=== PATIENT | female | born 1970 | race Caucasian/White ===

== ENCOUNTER 2020-01-11 21:45 | Outpatient (REF) | payer BC, SELFPAY ==
[2020-01-13 11:59] LABS: Lyme Ab w Rflx to Lyme Confirm Negative (Negative)
[2020-01-14 22:03] LABS: Anaplasma phagocytophilum Negative (Negative); B. miyamotoi PCR Negative (Negative); Babesia divergens/MO-1 Negative (Negative); Babesia duncani Negative (Negative); Babesia microti Negative (Negative); Ehrlichia chaffeensis Negative (Negative); Ehrlichia ewingii/canis Negative (Negative); Ehrlichia muris eauclairensis Negative (Negative)
== END 2020-01-11 22:05 ==
LOC: NCHCN 21:45
PROVIDERS: PCP Family Medicine; Visit Provider Physician Assistant Medical
DX: W57.XXXA Bitten or stung by nonvenomous insect and other nonvenomous arthropods, initial encounter (principal); T14.8XXA Other injury of unspecified body region, initial encounter
CPT/HCPCS: 87798; 86618

== ENCOUNTER 2021-12-12 19:14 | Outpatient (REF) | payer BC, SELFPAY ==
[2021-12-12 19:44] LABS: Hemoglobin A1C 5.6 % (<5.7)
[2021-12-12 20:38] LABS: ALT 20 U/L (14-59); AST 16 U/L (15-37); Albumin 3.7 g/dL (3.4-5.0); Alkaline Phosphatase 86 U/L (46-116); Anion Gap 6.7 mmol/L (3-11); BUN 16 mg/dL (7-18); Bilirubin, Total 0.6 mg/dL (0.2-1.0); CO2 28.3 mmol/L (21.0-32.0); CREATININE 0.7 mg/dL (0.55-1.02); Calcium 8.7 mg/dL (8.5-10.1); Calculated LDL 71 mg/dL (<100); Chloride 105 mmol/L (98-107); Cholesterol 172 mg/dL (<200); Glucose 96 mg/dL (74-106); HDL Cholesterol 92 mg/dL (40-60); Potassium 4.6 mmol/L (3.5-5.1); Sodium 140 mmol/L (136-145); Total Protein 6.9 g/dL (6.4-8.2); Triglyceride 45 mg/dL (<150)
== END 2021-12-12 19:15 | disposition home or self-care (01) ==
LOC: NCHCN 19:14
PROVIDERS: PCP Family Medicine; Visit Provider Physician Assistant Medical
DX: Z00.00 Encounter for general adult medical examination without abnormal findings (principal); Z86.32 Personal history of gestational diabetes; Z13.220 Encounter for screening for lipoid disorders
CPT/HCPCS: 80053; 80061; 83036

== ENCOUNTER → 2022-05-09 12:18 | Outpatient (CLI) | payer BC, SELFPAY ==
--- NOTE | 2022-05-09 | DI.RAD_ITS ---
Exam(s) XR CHEST 2V PA LATERAL EXAM: XR CHEST 2V PA LATERAL CLINICAL HISTORY: LT CHEST PAIN, R07.89 TECHNIQUE: 2D digital imaging was performed. COMPARISON: CR CHEST 2 VIEWS PA,LAT from 04/11/2011 FINDINGS: HEART: Normal size. Aorta: Normal diameter. PULMONARY VASCULATURE: Normal. LUNGS: Hyperinflated. Patchy densities projecting anteriorly which may lie in the lingula. PLEURAL SPACE: No pleural effusion or pneumothorax. BONE:Unremarkable for age. IMPRESSION: Question of lingular infiltrate. DATA REPOSITORY: RADIATION DOSE DELIVERED:
== END ==
PROVIDERS: PCP Family Medicine; Visit Provider Nurse Practitioner Family
DX: R07.89 Other chest pain (principal); R91.8 Other nonspecific abnormal finding of lung field
CPT/HCPCS: 71046

== ENCOUNTER → 2022-05-11 13:50 | Outpatient (CLI) | payer BC, SELFPAY ==
--- NOTE | 2022-05-11 | DI.CT_ITS ---
Exam(s) CT CHEST PE CTA EXAM: CT CHEST PE CTA CLINICAL HISTORY: LT CHEST PAIN, R07.89; PNEUMONIA, J18.9; ABNL LUNG IMAGING, R91.8. TECHNIQUE: Imaging Protocol: CT angiography of the chest was performed using pulmonary embolus katerin col. Multi planar reconstructions were performed. CONTRAST MATERIAL: Intravenous: Omnipaque 350 Contrast volume: 100 cc COMPARISON: CT CT CHEST WO from 05/10/2022 FINDINGS: CHEST: PULMONARY ARTERIES: There are no intraluminal filling defects to suggest acute pulmonary emboli. LUNGS: There is patchy infiltrate seen in both lung pickett. There is more confluent infiltrate in th e lingular segment of the left lung. No pleural effusions. No significant focal findings in the tra tony and mainstem bronchi. MEDIASTINUM: Small slightly enlarged lymph nodes noted in both hilar regions. CARDIAC: Heart size is upper normal. There is no pericardial effusion.Caliber of the thoracic aorta is within normal limits. No dissection. There is no significant shift of the interventricular septum . PARTIALLY VISUALIZED UPPERMOST ABDOMEN: No obvious findings OSSEOUS: No significant osseous lesions.. IMPRESSION: 1. No evidence of acute pulmonary emboli. No evidence of pulmonary infarction. 2. There is confluent infiltrate in the lingular segment of the left lung. Are also smaller areas of patchy infiltrate in both lung pickett. There are no pleural effusions. 3. Slightly prominent lymph nodes noted in both hilar regions. RADIATION DOSE DELIVERED: 204.02mGy.cm Total DLP DATA REPOSITORY: All CT scans at this facility are submitted to the National Radiology Data Registry (NRDR) Dose Index Registry (DIR) with the [employer] (ACR). RADIATION OPTIMIZATION: All CT scans at this facility use at least one of these dose optimization te chniques: automated exposure control; mA and/or kV adjustment per patient size (includes targeted exa ms where dose is matched to clinical indication); or iterative reconstruction.
[2022-05-11] MEDS: Omnipaque 350 MG/ML 100 ML BTL IJ (14:13)
[2022-05-11] MEDS: Normal Saline Flush 10 ML SYR IVP (14:14)
== END ==
PROVIDERS: PCP Family Medicine; Visit Provider Nurse Practitioner Family
DX: R59.0 Localized enlarged lymph nodes (principal); R91.8 Other nonspecific abnormal finding of lung field
CPT/HCPCS: 71275; J3490

== ENCOUNTER 2023-03-08 13:50 | Outpatient (REF) | payer BC, SELFPAY ==
[2023-03-08 16:30] LABS: Abs Immature Grans 0.01 10^3/uL (0.0-0.06); Absolute Basophil Count 0.03 10^3/uL (0.0-0.2); Absolute Eosinophil Count 0.07 10^3/uL (0.0-0.7); Absolute Lymphocyte Count 1.42 10^3/uL (1.2-3.4); Absolute Monocyte Count 0.52 10^3/uL (0.1-0.8); Absolute Neutrophil Count 5.04 10^3/uL (1.2-6.7); Basophils % 0.4; HCT 38.8 % (36.0-46.0); HGB 12.9 g/dL (11.2-15.7); Immature Grans % 0.1; MCH 29.7 pg (27.0-33.0); MCHC 33.2 % (32.0-36.0); MCV 89 fL (80-95); Monocytes % 7.3; Neutrophils % 71.2; Platelet Count 218 10^3/uL (130-400); RBC 4.35 10^6/uL (3.93-5.22); RDW 12.8 % (11.7-14.6); RDW-SD 41.8 fL; WBC 7.09 10^3/uL (4.4-10.8)
[2023-03-08 16:55] LABS: Anion Gap 5.5 mmol/L (3-11); BUN 15 mg/dL (7-18); CO2 29.5 mmol/L (21.0-32.0); CREATININE 0.7 mg/dL (0.55-1.02); Calcium 9.2 mg/dL (8.5-10.1); Chloride 102 mmol/L (98-107); Glucose 157 mg/dL (74-106); Potassium 4.3 mmol/L (3.5-5.1); Sodium 137 mmol/L (136-145)
== END 2023-03-08 13:51 | disposition home or self-care (01) ==
LOC: NCHCN 13:50
PROVIDERS: PCP Family Medicine; Visit Provider Physician Assistant Medical
DX: R91.8 Other nonspecific abnormal finding of lung field (principal)
CPT/HCPCS: 80048; 85025

== ENCOUNTER 2023-05-03 04:17 | Outpatient (CLI) | payer BC, SELFPAY ==
[2023-05-03] MEDS: Levalbuterol HFA 15 GM INH 4 PUFF IH (14:10)
[2023-05-03] MEDS: Inhaler, Assist Device 1 EACH MC (14:11)
--- NOTE | 2023-05-06 13:28 | PFT_ITS ---
Date of service: 05/03/23 Time of Service: 12:48 Pulmonary Function Test Result Indications: Bronchiectasis Interpretation Spirometry: There is moderate airflow limitation. There is no significant bronchodilator r esponse. Lung Volumes: There is air trapping Diffusion Capacity: Normal diffusion Airway Pressure: Increased airways resistance Impression Moderate airflow obstruction with air trapping and increased airways resistance. Clinical Correlation therefore is recommended.
== END 2023-05-03 04:18 | disposition home or self-care (01) ==
LOC: RT 04:17
PROVIDERS: PCP Family Medicine; Visit Provider Student in an Organized Health Care Education/Training Program
DX: J47.9 Bronchiectasis, uncomplicated (principal)
CPT/HCPCS: 94060; 94726; 94729

== ENCOUNTER 2023-05-06 06:06 | Day surgery (SDC) | payer BC, SELFPAY ==
[2023-05-06] VITALS (8 sets, daily range): BP systolic 99–127; BP diastolic 47–71; PULSE 59–80; RESP 16–20; TEMP 36.4–36.8; O2SAT 94–98; BMI 21.0
[2023-05-06] MEDS: Lactated Ringers 1,000 ML 80 ML IV (06:34)
--- NOTE | 2023-05-06 06:38 | ANES.PREOP_ITS ---
General Info Date of Service Date Performed: 05/06/23 Height: 5 ft 7.5 in Weight: 61.9 kg Body Mass Index (BMI): 21.0 Surgical Procedure: Operation Date: 05/06/23 07:40 Proposed Procedure Side Surgeon p Flexible Bronchoscopy w/BAL Nia Arriaga MD Meds Allergies and Home Medications Allergies Allergy/AdvReac Type Severity Reaction Status Date / Time codeine Allergy Severe hives Verified 05/06/23 06:21 Home Medication Medication Instructions Recorded fluticasone furoate 100 1 inh inhalation PRN 07/09/18 mcg-vilanterol 25 mcg/dose inhalation powder (Breo Ellipta) ascorbate calcium (vitamin C) 500 500 mg PO DIRECTED 04/02/23 mg tablet acetylcysteine 600 mg capsule (NAC) 600 mg PO DAILY 04/23/23 albuterol sulfate 90 mcg/actuation 2 puff inhalation Q6H PRN 04/23/23 aerosol inhaler shortness of breath or wheezing #8.5 grams triamcinolone acetonide 0.1 % 1 applic topical BID PRN 04/23/23 topical cream Current Visit Medications: Current Medications Generic Name Dose Route Start Last Admin Trade Name Freq PRN Reason Stop Dose Admin Ringer's Solution 1,000 mls @ 80 mls/hr 05/06/23 06:00 05/06/23 06:34 IV 06/02/23 23:59 80 mls/hr INFUSION AYAN Administration IV Miscellaneous Supplies 1 each 05/06/23 06:00 Iv Access IV 06/02/23 23:59 DIRECTED AYAN Sodium Chloride 0 ml 05/06/23 06:00 Normal Saline Flush 10 Ml Syr IV 06/02/23 23:59 PRN PRN Sodium Chloride 0 ml 05/06/23 06:00 Normal Saline 10 Ml Vial IJ 06/02/23 23:59 DIRECTED PRN Sterile Water 0 ml 05/06/23 06:00 Water,Injection,Sterile 10 Ml Vial IJ 06/02/23 23:59 DIRECTED PRN PFSH Active Problems Active Problems: Problem Status Onset Code Hemoptysis R04.2 COPD (chronic obstructive pulmonary disease) J44.9 Bronchiectasis J47.9 Reflux esophagitis K21.00 Cystocele with uterine prolapse N81.4 Pneumonia due to COVID-19 virus U07.1, J12.82 Cataract H26.9 Lip lesion K13.0 Bladder disorder N32.9 Foot pain M79.673 Urinary, incontinence, stress female N39.3 Chest pain R07.9 Pneumonia J18.9 Abnormal finding on lung imaging R91.8 GERD (gastroesophageal reflux disease) K21.9 Hiatal hernia K44.9 Hot flashes R23.2 Medical History Medical History Asthma Cough variant asthma Gestational diabetes Surgical History Surgical History H/O arthroscopy of knee H/O dilation and curettage History of colonoscopy History of cystocele repair History of esophagogastroduodenoscopy (EGD) Hx of hysterectomy laparoscopic asst vaginal Tobacco Smoking/Tobacco Use Status: Never Alcohol Alcohol Intake: never Substance Use Substance use type: does not use Prental History History 3 Para 2 Hx # Term Pregnancies Multiple births Hx # Pregnancies Ectopic pregnancies AB induced Hx Number of Living Children 2 AB spontaneous 1 Vital Signs and Lab Results Vital Signs Most Recent Vital Signs in EMR: Most Recent Vital Signs Temp Pulse Resp BP Pulse Ox 36.8 C 67 16 127/64 97 05/06/23 06:22 05/06/23 06:22 05/06/23 06:22 05/06/23 06:22 05/06/23 06:22 Lab Results Blood Type / Crossmatch: No Data to Display Complete Blood Count: No Data to Display Complete Metabolic Panel: No Data to Display Liver Function Panel: No Data to Display Coagulation Panel: No Data to Display Cardiac Panel: No Data to Display Arterial Blood Gas: No Data to Display Venous Blood Gas: No Data to Display Pancreas Panel: No Data to Display Thyroid Panel: No Data to Display Infectious Disease: 2 No Data to Display Blood Cultures: No Data to Display Toxicology Panel: No Data to Display Panel: No Data to Display Anesthesia Assessment and Plan Anesthesia History Personal History: No History of Anesthesia Complications Family History: No Family History of Anesthesia Complications Exercise Tolerance Exercise Tolerance: Metabolic Equivalents>4 Cardiac & Pulmonary Exam Cardiac Exam: Normal S1/S2 Heart Sounds Pulmonary Exam: Clear Bilateral Breath Sounds Implantable Cardiac Device Does patient have a Pacemaker or an ICD?: No Airway Exam Known Difficult Airway: No Mallampati Class: 3 Mouth Opening: Normal (> 3cm) Thyromental Distance: Greater than 3 cm Neck Range of Motion: Full ROM Neck Circumference: Normal Teeth Condition: Normal Dentition ASA Classification ASA Score: ASA 2 Emergency Case?: No NPO Status NPO Status: NPO Clears >2 hours, Solids >8 hours Status Status: History of Hysterectomy Anesthesia Plan Resuscitation Status: Full Code Anesthesia Technique: General Anesthesia Airway Planned: Natural Airway Monitors Used: Standard Monitors Preoperative Comments:: 53 yo female for bronch. Sig PMHx: COPD (breathing feels good today), bronchiectasis, GERD (not on meds, has not had issues, ? of if it is related to her infection), never smoker,
[2023-05-06] MEDS: Lidocaine 1% Multi-Dose 10 ML VIAL (07:44)
--- NOTE | 2023-05-06 07:50 | PAPNONF_PTH ---
PATIENT: Adilia Pierre LOC: [facility] U#:[id number] AGE/SX: 53/F ROOM: RE05/06/[address]: Nia Arriaga MD : 1970 BED: DIS: 05/06/2023 SPEC #: [id number] RECD: 05/06/23 11:53 STATUS: MITZI REQ #: [id number] FÉLIX: 05/06/23 07:[address]: Nia Arriaga DEPT: [facility] Cytology RECD BY: Dinah Banerjee ENTERED: 05/06/23 11:55 SP TYPE: PAPCAMILLEF ASHLEE DR: Marian Munguia V Tissues: 1 - BODY FLUID CYTO(NOT S/U/N/EM)[facility] 2 - BODY FLUID CYTO(NOT S/U/N/EM)[facility] Procedures: BODY FLUID CYTO(NOT SPU/UR/NIP/ENDOM)[facility] Comments: [id number] (TV = 10 ml, SENT FRESH) (REFRIGERATED)
--- NOTE | 2023-05-06 08:33 | W.ANESPOSTOP ---
Postoperative Evaluation Date, Time and Location Date Performed: 05/06/23 Time Performed: 08:33 Patient Location: PACU Vital Signs Most Recent Imported Vital Signs: Most Recent Vital Signs Temp Pulse Resp BP Pulse Ox 36.4 C L 74 16 102/71 97 05/06/23 08:16 05/06/23 08:26 05/06/23 08:26 05/06/23 08:26 05/06/23 08:26 Pain Score Most Recent Pain Score: Most Recent Pain Score Pain Level 0 05/06/23 08:26 Assessment Mental Status: Arousable with meaningful communication Airway and Respiratory Function: Patent airway with normal (patient baseline) respiratory exam Cardiovascular Function: Hemodynamically Stable Hydration Status: Adequately Hydrated Nausea & Vomiting: No Nausea or Vomiting Pain: Pt. Denies Any Pain Peripheral Nerve Block: Patient did not receive a nerve block
--- NOTE | 2023-05-06 09:14 | W.PM.OP ---
Date of service: 05/06/23 Time of Service: 07:30 Operative Note Operative Note Refer to Anesthesia Record Procedure Description: Bronchoscopy Indication:Bronchiectasis, hemoptysis Procedure performed: Flexible bronchoscopy with BAL and endobronchial brushing Sedation plan: General anesthesia Informed consent was obtained after the risks and benefits or the procedure were discussed. Anesthesia sedated and intubated the patient. A proper and complete OR compliant time out was performed. The therapeutic 6.2mm Olympus bronchoscope was inserted through the endotracheal tube and was inserted into the airways, where 3cc in total of 1% topical lidocaine was used the anesthetize the airways. The trachea was midline and without lesion or injury. The mucosa appeared normal and there were no signs of tracheomalacia. The doug was sharp. All bronchial subsegments were visualized within each lobe and showed some bronchiectasis with a small amount of white mucus. There were also several endobronchial nodules present that appeared to be contiguous with the tracheal rings and did not appear hypervascularized. A bronchoalveolar lavage was performed in the lingula. A total of 120cc of saline was administered with a return of 20cc. The fluid was slightly cloudy in appearance with visible mucus plugs. Next, an endobronchial brush was used to sample one of the endobronchial nodules in the left main stem bronchus. The bronchoscope was then removed and the case terminated. The patient was taken to PACU in stable condition. Samples collected:Lingular BAL, bronchial washings, endobronchial brushing Testing ordered:cell diff, bacteria, fungal and AFB culture, cytopathology Complications:None Nia Arriaga MD Pulmonary & Critical Care Medicine
[2023-05-08 08:34] LABS: Gram Smear Result Neutrophils Present
[2023-05-08 08:45] LABS: Gram Smear Result Neutrophils Present
[2023-05-13 14:05] LABS: Lymphocytes Fluid Relative 2 %; Neutrophils Fluid Relative 90 %
[2023-05-13 14:06] LABS: Mono/Macrophage Fluid Relative 8 %
[2023-06-11 14:29] LABS: Fungus Smear No Fungi Seen
[2023-06-11 14:33] LABS: Fungus Smear No Fungi Seen
[2023-08-09 10:43] LABS: Susceptibility, Aerobic MIC See Comments
[2023-08-09 10:58] LABS: Referred for Fungus ID See Comments
== END 2023-05-06 09:27 | disposition home or self-care (01) ==
PROVIDERS: PCP Family Medicine; Visit Provider Student in an Organized Health Care Education/Training Program
PROC: 0BJ08ZZ Inspection of Tracheobronchial Tree, Via Natural or Artificial Opening Endoscopic (ICD-10-PCS; CPT 31622; principal; 2023-05-06 07:30)
DX: J47.9 Bronchiectasis, uncomplicated (principal); R04.2 Hemoptysis; K21.9 Gastro-esophageal reflux disease without esophagitis; K44.9 Diaphragmatic hernia without obstruction or gangrene; Z79.899 Other long term (current) drug therapy
CPT/HCPCS: 31623; 31624; 80162; 87070; 87077; 87102; 87107; 87116; 87186; 87205; 87206; 88104; J2250; J2405

== ENCOUNTER → 2023-07-23 00:39 | Outpatient (CLI) | payer BC, SELFPAY ==
--- NOTE | 2023-07-23 | DI.RAD_ITS ---
Exam(s) XR ABDOMEN FLAT PLATE EXAM: XR ABDOMEN FLAT PLATE CLINICAL HISTORY: NOCARDIA INFECTION A43.9 EGD W/ CAPSULE PLACEMENT ON 06/21/23. TECHNIQUE: 2D digital imaging was performed. COMPARISON: CT CT CHEST PE CTA from 05/11/2022 CR XR CHEST, 2 VIEWS from 01/26/2023 FINDINGS: Single AP supine view the abdomen: The bowel gas pattern is nonspecific in the supine position. Round calcified phleboliths are noted i n both sides of the pelvis. There is a round circumferentially calcified 1 cm structure in the right upper quadrant, just to the right of the L1 vertebral body. Projected over the duodenum and superior pole the right kidney. IMPRESSION: Nonspecific bowel gas pattern in the supine position. Peripherally calcified roundish density in the right upper quadrant as described above. Possibly ing ested or otherwise. If clinically indicated follow-up CT scan can be performed for added specificity concerning this finding. DATA REPOSITORY: RADIATION DOSE DELIVERED:
[2023-07-23 09:15] LABS: BUN 15 mg/dL (7-18); CREATININE 0.7 mg/dL (0.55-1.02); Calcium 9.3 mg/dL (8.5-10.1); Chloride 104 mmol/L (98-107); Glucose 67 mg/dL (74-106); Potassium 3.9 mmol/L (3.5-5.1); Sodium 139 mmol/L (136-145)
== END ==
PROVIDERS: Student in an Organized Health Care Education/Training Program; PCP Family Medicine; Visit Provider Internal Medicine Infectious Disease
DX: A43.0 Pulmonary nocardiosis (principal)
CPT/HCPCS: 80048; 74018

== ENCOUNTER 2023-09-06 13:02 | Outpatient (CLI) | payer BC, SELFPAY ==
[2023-09-06 12:50] LABS: Abs Immature Grans 0.02 10^3/uL (0.0-0.06); Absolute Basophil Count 0.04 10^3/uL (0.0-0.2); Absolute Eosinophil Count 0.12 10^3/uL (0.0-0.7); Absolute Lymphocyte Count 1.48 10^3/uL (1.2-3.4); Absolute Monocyte Count 0.55 10^3/uL (0.1-0.8); Absolute Neutrophil Count 4.93 10^3/uL (1.2-6.7); Basophils % 0.6; Eosinophils % 1.7; HCT 42.5 % (36.0-46.0); HGB 13.9 g/dL (11.2-15.7); Immature Grans % 0.3; Lymphocytes % 20.7; MCH 28.8 pg (27.0-33.0); MCHC 32.7 % (32.0-36.0); MCV 88 fL (80-95); Monocytes % 7.7; Platelet Count 206 10^3/uL (130-400); RBC 4.83 10^6/uL (3.93-5.22); RDW 12.9 % (11.7-14.6); RDW-SD 41.7 fL; WBC 7.14 10^3/uL (4.4-10.8)
[2023-09-06 13:17] LABS: ALT 28 U/L (14-59); AST 20 U/L (15-37); Alkaline Phosphatase 102 U/L (46-116); Anion Gap 7.2 mmol/L (3-11); BUN 15 mg/dL (7-18); Bilirubin, Total 0.4 mg/dL (0.2-1.0); CO2 28.8 mmol/L (21.0-32.0); CREATININE 0.7 mg/dL (0.55-1.02); Calcium 9.5 mg/dL (8.5-10.1); Chloride 103 mmol/L (98-107); Glucose 95 mg/dL (74-106); Potassium 4.1 mmol/L (3.5-5.1); Sodium 139 mmol/L (136-145); Total Protein 7.9 g/dL (6.4-8.2)
[2023-09-06 23:13] LABS: HIV-1/2 Ag & Ab Screen Negative (Negative)
== END 2023-09-06 13:03 | disposition home or self-care (01) ==
LOC: LBO 13:03
PROVIDERS: PCP Family Medicine
DX: A43.9 Nocardiosis, unspecified (principal)
CPT/HCPCS: 36415; 80053; 87389; 85025

== ENCOUNTER → 2023-10-01 01:47 | Outpatient (CLI) | payer BC, SELFPAY ==
--- NOTE | 2023-10-01 | DI.CT_ITS ---
Exam(s) CT CHEST W EXAM: CT CHEST W CLINICAL HISTORY: NOCARDIA INFECTION A43.9 KNOWN PULMONARY NOCARDIOSIS TECHNIQUE: Imaging Protocol: Axial computed tomography images with coronal and sagittal reformatted images were created and reviewed CONTRAST MATERIAL: Intravenous: Omnipaque 350 Contrast volume:70 ml. COMPARISON: CT CT CHEST W CONTRAST from 03/19/2023 FINDINGS: Pulmonary parenchyma: Area bronchiectasis and surrounding atelectasis in the inferomedial lingula. M ild patchy tree-in-bud opacities are noted bilaterally with improvement from prior. Resolution in th e area of airspace disease in the superior segment of the left lower lobe. No new findings. No cons olidation. No dominant measurable mass. Tracheobronchial tree: No bronchiectasis or mucous plugging. Mediastinum and [place]: No dominant adenopathy or fluid collection. Pleura: No effusion. No pneumothorax. Heart: The heart is not dilated. No coronary artery calcifications are seen. Aorta: Thoracic aorta non-dilated. No visible atherosclerotic changes. Upper abdomen: No acute findings.. Bones: Minimal degenerative changes in the spine. Soft tissues: Unremarkable. IMPRESSION: Resolution of focal airspace disease in the superior segment of the left lower lobe. Improvement in mild tree-in-bud nodular infiltrates. Stable bronchiectasis with surrounding atelectasis in the inferomedial lingula. RADIATION DOSE DELIVERED: 386.49mGy.cm Total DLP DATA REPOSITORY: All CT scans at this facility are submitted to the National Radiology Data Registry (NRDR) Dose Index Registry (DIR) with the [employer] (ACR). RADIATION OPTIMIZATION: All CT scans at this facility use at least one of these dose optimization te chniques: automated exposure control; mA and/or kV adjustment per patient size (includes targeted exa ms where dose is matched to clinical indication); or iterative reconstruction.
[2023-10-01 07:36] LABS: Abs Immature Grans 0.03 10^3/uL (0.0-0.06); Absolute Basophil Count 0.05 10^3/uL (0.0-0.2); Absolute Eosinophil Count 0.15 10^3/uL (0.0-0.7); Absolute Lymphocyte Count 1.42 10^3/uL (1.2-3.4); Absolute Monocyte Count 0.42 10^3/uL (0.1-0.8); Absolute Neutrophil Count 2.57 10^3/uL (1.2-6.7); Basophils % 1.1; Eosinophils % 3.2; HCT 43.8 % (36.0-46.0); HGB 14.6 g/dL (11.2-15.7); Immature Grans % 0.6; Lymphocytes % 30.6; MCH 29.4 pg (27.0-33.0); MCHC 33.3 % (32.0-36.0); MCV 88 fL (80-95); MPV 11.3 fL (8.0-11.0); Monocytes % 9.1; Neutrophils % 55.4; Platelet Count 184 10^3/uL (130-400); RBC 4.97 10^6/uL (3.93-5.22); RDW 12.3 % (11.7-14.6); RDW-SD 39.8 fL; WBC 4.64 10^3/uL (4.4-10.8)
[2023-10-01] MEDS: Normal Saline - Diluent 50 ML VIAL IJ (07:48)
[2023-10-01] MEDS: Omnipaque 350 MG/ML 100 ML BTL IJ (07:49)
[2023-10-01 07:53] LABS: ALT 22 U/L (14-59); AST 21 U/L (15-37); Albumin 3.7 g/dL (3.4-5.0); Alkaline Phosphatase 103 U/L (46-116); Anion Gap 7.7 mmol/L (3-11); BUN 16 mg/dL (7-18); Bilirubin, Total 0.4 mg/dL (0.2-1.0); CO2 30.3 mmol/L (21.0-32.0); CREATININE 0.8 mg/dL (0.55-1.02); Calcium 9.2 mg/dL (8.5-10.1); Chloride 104 mmol/L (98-107); Glucose 121 mg/dL (74-106); Potassium 4.1 mmol/L (3.5-5.1); Sodium 142 mmol/L (136-145); Total Protein 7.2 g/dL (6.4-8.2)
== END ==
PROVIDERS: Internal Medicine Infectious Disease; PCP Family Medicine; Visit Provider Student in an Organized Health Care Education/Training Program
DX: A43.9 Nocardiosis, unspecified (principal)
CPT/HCPCS: 80053; 71260; 85025; J3490

== ENCOUNTER 2023-11-01 13:46 | Outpatient (CLI) | payer BC, SELFPAY ==
[2023-11-01 13:19] LABS: Abs Immature Grans 0.01 10^3/uL (0.0-0.06); Absolute Basophil Count 0.03 10^3/uL (0.0-0.2); Absolute Eosinophil Count 0.06 10^3/uL (0.0-0.7); Absolute Lymphocyte Count 1.33 10^3/uL (1.2-3.4); Absolute Monocyte Count 0.35 10^3/uL (0.1-0.8); Absolute Neutrophil Count 3.74 10^3/uL (1.2-6.7); Basophils % 0.5; Eosinophils % 1.1; HCT 42.7 % (36.0-46.0); HGB 14.4 g/dL (11.2-15.7); Immature Grans % 0.2; Lymphocytes % 24.1; MCHC 33.7 % (32.0-36.0); MCV 89 fL (80-95); MPV 11.7 fL (8.0-11.0); Monocytes % 6.3; Neutrophils % 67.8; Platelet Count 187 10^3/uL (130-400); RDW 12.3 % (11.7-14.6); RDW-SD 40.5 fL; WBC 5.52 10^3/uL (4.4-10.8)
[2023-11-01 14:13] LABS: ALT 18 U/L (14-59); AST 19 U/L (15-37); Albumin 3.8 g/dL (3.4-5.0); Alkaline Phosphatase 106 U/L (46-116); Anion Gap 8.3 mmol/L (3-11); BUN 16 mg/dL (7-18); Bilirubin, Total 0.3 mg/dL (0.2-1.0); CO2 27.7 mmol/L (21.0-32.0); CREATININE 0.7 mg/dL (0.55-1.02); Calcium 9.3 mg/dL (8.5-10.1); Chloride 104 mmol/L (98-107); Glucose 149 mg/dL (74-106); Potassium 3.9 mmol/L (3.5-5.1); Sodium 140 mmol/L (136-145); Total Protein 7.5 g/dL (6.4-8.2)
[2023-11-06 09:50] LABS: Estradiol, Mass Spectrometry 54 pg/mL; Estrone 55 pg/mL
== END 2023-11-01 13:47 | disposition home or self-care (01) ==
LOC: LBO 13:46
PROVIDERS: Internal Medicine; PCP Family Medicine; Visit Provider Physician Assistant Medical
DX: N95.1 Menopausal and female climacteric states (principal); A43.9 Nocardiosis, unspecified
CPT/HCPCS: 36415; 80053; 82670; 82679; 85025

== ENCOUNTER 2023-12-17 21:28 | Outpatient (CLI) | payer BC, SELFPAY ==
[2023-12-17 17:01] LABS: Abs Immature Grans 0.01 10^3/uL (0.0-0.06); Absolute Basophil Count 0.02 10^3/uL (0.0-0.2); Absolute Lymphocyte Count 1.54 10^3/uL (1.2-3.4); Absolute Monocyte Count 0.61 10^3/uL (0.1-0.8); Absolute Neutrophil Count 2.75 10^3/uL (1.2-6.7); Basophils % 0.4 %; HGB 13.8 g/dL (11.2-15.7); Immature Grans % 0.2 %; Lymphocytes % 30.6 %; MCH 29.7 pg (27.0-33.0); MCHC 32.9 % (32.0-36.0); MCV 90 fL (80-95); MPV 11.9 fL (8.0-11.0); Monocytes % 12.1 %; Neutrophils % 54.7 %; Platelet Count 200 10^3/uL (130-400); RBC 4.65 10^6/uL (3.93-5.22); RDW 12.8 % (11.7-14.6); RDW-SD 42.1 fL; WBC 5.03 10^3/uL (4.4-10.8)
[2023-12-17 17:41] LABS: ALT 26 U/L (14-59); AST 19 U/L (15-37); Alkaline Phosphatase 95 U/L (46-116); Anion Gap 8.2 mmol/L (3-11); BUN 16 mg/dL (7-18); Bilirubin, Total 0.4 mg/dL (0.2-1.0); CO2 29.8 mmol/L (21.0-32.0); CREATININE 0.8 mg/dL (0.55-1.02); Calcium 9.2 mg/dL (8.5-10.1); Chloride 103 mmol/L (98-107); Glucose 109 mg/dL (74-106); Potassium 4.1 mmol/L (3.5-5.1); Sodium 141 mmol/L (136-145); Total Protein 7.4 g/dL (6.4-8.2)
== END 2023-12-17 21:29 | disposition home or self-care (01) ==
LOC: LBO 21:28
PROVIDERS: PCP Family Medicine; Visit Provider Internal Medicine Infectious Disease
DX: A43.8 Other forms of nocardiosis (principal)
CPT/HCPCS: 36415; 80053; 85025

== ENCOUNTER 2024-07-22 09:02 | Outpatient (REF) | payer BC, SELFPAY ==
[2024-07-22 15:17] LABS: Hemoglobin A1C 5.7 % (<5.7)
[2024-07-22 15:44] LABS: Calculated LDL 80 mg/dL (<100); Cholesterol 195 mg/dL (<200); HDL Cholesterol 107 mg/dL (40-60); Triglyceride 43 mg/dL (<150)
== END 2024-07-22 09:03 | disposition home or self-care (01) ==
LOC: NCHCN 09:02
PROVIDERS: PCP Family Medicine; Visit Provider Physician Assistant Medical
DX: R73.9 Hyperglycemia, unspecified (principal); Z13.220 Encounter for screening for lipoid disorders
CPT/HCPCS: 80061; 83036

== ENCOUNTER 2024-09-04 11:40 | Outpatient (CLI) | payer OTHER, SELFPAY ==
[2024-09-04 12:39] LABS: CREATININE 0.8 mg/dL (0.55-1.02); Estimated GFR 88.05 (mL/min/1.73m2)
[2024-09-04 12:40] LABS: Abs Immature Grans 0.02 10^3/uL (0.0-0.06); Absolute Basophil Count 0.04 10^3/uL (0.0-0.2); Absolute Eosinophil Count 0.12 10^3/uL (0.0-0.7); Absolute Lymphocyte Count 1.45 10^3/uL (1.2-3.4); Absolute Monocyte Count 0.59 10^3/uL (0.1-0.8); Absolute Neutrophil Count 4.96 10^3/uL (1.2-6.7); Basophils % 0.6 %; Eosinophils % 1.7 %; HCT 42.5 % (36.0-46.0); HGB 13.8 g/dL (11.2-15.7); Immature Grans % 0.3 %; Lymphocytes % 20.2 %; MCH 29.6 pg (27.0-33.0); MCHC 32.5 % (32.0-36.0); MCV 91 fL (80-95); MPV 11.7 fL (8.0-11.0); Monocytes % 8.2 %; Platelet Count 214 10^3/uL (130-400); RBC 4.67 10^6/uL (3.93-5.22); RDW 12.3 % (11.7-14.6); RDW-SD 41.1 fL; WBC 7.18 10^3/uL (4.4-10.8)
[2024-09-07 12:38] LABS: Ro60 Ab, IgG <7.0 CU (<20.0); SS-A/Ro, IgG <2.3 CU (<20.0); SS-B (La) Ab, IgG <3.3 CU (<20.0)
[2024-09-07 13:25] LABS: dsDNA Ab, IgG <22.0 IU/mL (<27.0)
[2024-09-07 14:11] LABS: ANA Interpretation Negative (Negative)
[2024-09-07 15:30] LABS: Scl 70 Antibodies, IgG <0.2 U
[2024-10-06 02:10] LABS: Anti-EJ Ab Negative (Negative); Anti-Jo-1 Ab <20 Units (<20); Anti-Ku Ab Negative (Negative); Anti-MDA-5 Ab (CADM-140) <20 Units (<20); Anti-Mi-2-Ab Negative (Negative); Anti-NXP-2 (P140) Ab <20 Units (<20); Anti-OJ Ab Negative (Negative); Anti-PL-12 Ab Negative (Negative); Anti-PL-7 Ab Negative (Negative); Anti-PM/Scl-100 Ab <20 Units (<20); Anti-SAE1 Ab, IgG <20 Units (<20); Anti-SRP Ab Negative (Negative); Anti-SS-A 52kD Ab, IgG 22 Units (<20); Anti-TIF-1gamma Ab <20 Units (<20); Anti-U1 RNP Ab <20 Units (<20); Anti-U2 RNP Ab Negative (Negative); Anti-U3 RNP (Fibrillarin) Negative (Negative)
== END 2024-09-04 11:41 | disposition home or self-care (01) ==
LOC: LBO 11:40
PROVIDERS: PCP Family Medicine; Visit Provider Student in an Organized Health Care Education/Training Program
DX: A43.9 Nocardiosis, unspecified (principal); J47.0 Bronchiectasis with acute lower respiratory infection
CPT/HCPCS: 36415; 83516; 83520; 86235; 82565; 85025; 86038; 86225

== ENCOUNTER 2024-09-08 00:12 | Outpatient (CLI) | payer OTHER, SELFPAY ==
--- NOTE | 2024-09-08 | DI.MRI_ITS ---
Exam(s) MR BRAIN WO/W EXAM: MR BRAIN WO/W CLINICAL HISTORY: Nocardiosis, A43.9, ? LINE FIXER disease TECHNIQUE: Multiplanar multisequence MRI of the brain was performed. CONTRAST MATERIAL: IV Contrast: 13 mL of Dotarem contrast administered. COMPARISON: CT CT HEAD WO/W from 08/01/2023 FINDINGS: VENTRICLES AND EXTRA AXIAL SPACES: Normal in size and morphology for the patient's age. HEMORRHAGE: None. CEREBRAL PARENCHYMA: No focus of restricted diffusion to suggest acute infarct. No space-occupying le evie identified. No evidence of an intraparenchymal abscess. There are few scattered hyperintense fo ci in the white matter on the FLAIR and T2 weighted images. These likely reflect early small vessel ischemic disease. No enhancement is seen. MIDLINE SHIFT: None. BRAINSTEM/CEREBELLUM: Normal. CALVARIUM: Normal. ENHANCEMENT: No suspicious enhancement identified. VISUALIZED PARANASAL SINUSES/MASTOIDS: Clear. [place]: Normal flow void. PIT[place]ARY [place]: Unremarkable. OTHER FINDINGS: IMPRESSION: No evidence of an intracranial mass or abscess. No abnormal enhancement is seen intracranially. DATA REPOSITORY:
[2024-09-08] MEDS: Gadoterate meglumine 20 ML SYRINGE IVP (14:26)
[2024-09-08] MEDS: Normal Saline Flush 10 ML SYR IJ (14:27)
== END 2024-09-08 00:32 ==
LOC: DI 00:12
PROVIDERS: PCP Family Medicine; Visit Provider Student in an Organized Health Care Education/Training Program
DX: A43.9 Nocardiosis, unspecified (principal)
CPT/HCPCS: 70553

== ENCOUNTER 2024-09-18 13:36 | Outpatient (CLI) | payer OTHER, SELFPAY ==
[2024-09-18 14:00] LABS: Estimated GFR 67.36 (mL/min/1.73m2); Potassium 4.6 mmol/L (3.5-5.1)
== END 2024-09-18 13:37 | disposition home or self-care (01) ==
LOC: LBO 13:36
PROVIDERS: PCP Family Medicine; Visit Provider Student in an Organized Health Care Education/Training Program
DX: Z79.899 Other long term (current) drug therapy (principal)
CPT/HCPCS: 36415; 82565; 84132

== ENCOUNTER 2024-09-25 12:49 | Outpatient (CLI) | payer OTHER, SELFPAY ==
--- NOTE | 2024-09-25 12:45 | RT.EKG_ITS ---
APPROVED REPORT Exam: Resting ECG Reason for Exam: Mycobacterium avium complex Patient Location: O HR:57 bpm ECG Measurements Heart Rate 57 AXIS [place] 111 P -59 QRSd 78 QRS 86 QT 416 T 64 QTc 405 Conclusion Sinus or ectopic atrial rhythm...P axis (-45,135) Borderline short [place] interval...[place] int <120mS
== END 2024-09-25 12:50 | disposition home or self-care (01) ==
PROVIDERS: PCP Family Medicine; Visit Provider Internal Medicine Infectious Disease
DX: A31.8 Other mycobacterial infections (principal)
CPT/HCPCS: 93005; 93010

== ENCOUNTER 2024-10-02 00:44 | Outpatient (CLI) | payer OTHER, SELFPAY ==
[2024-10-02 12:05] LABS: Absolute Basophil Count 0.06 10^3/uL (0.0-0.2); Absolute Eosinophil Count 0.11 10^3/uL (0.0-0.7); Absolute Lymphocyte Count 1.09 10^3/uL (1.2-3.4); Absolute Monocyte Count 0.85 10^3/uL (0.1-0.8); Absolute Neutrophil Count 2.14 10^3/uL (1.2-6.7); Basophils % 1.4 %; Eosinophils % 2.6 %; HCT 41.3 % (36.0-46.0); HGB 13.4 g/dL (11.2-15.7); Lymphocytes % 25.6 %; MCH 29.7 pg (27.0-33.0); MCHC 32.4 % (32.0-36.0); MCV 92 fL (80-95); MPV 11.4 fL (8.0-11.0); Neutrophils % 50.4 %; Platelet Count 226 10^3/uL (130-400); RBC 4.51 10^6/uL (3.93-5.22); RDW 13.2 % (11.7-14.6); RDW-SD 44.7 fL; WBC 4.25 10^3/uL (4.4-10.8)
[2024-10-02 12:18] LABS: CREATININE 0.9 mg/dL (0.55-1.02); Estimated GFR 76.44 (mL/min/1.73m2)
== END 2024-10-02 00:45 | disposition home or self-care (01) ==
PROVIDERS: PCP Family Medicine; Visit Provider Student in an Organized Health Care Education/Training Program
DX: A43.9 Nocardiosis, unspecified (principal)
CPT/HCPCS: 36415; 82565; 85025

== ENCOUNTER 2024-10-30 00:56 | Outpatient (CLI) | payer OTHER, SELFPAY ==
[2024-10-30 11:38] LABS: Absolute Basophil Count 0.03 10^3/uL (0.0-0.2); Absolute Eosinophil Count 0.05 10^3/uL (0.0-0.7); Absolute Lymphocyte Count 0.91 10^3/uL (1.2-3.4); Absolute Neutrophil Count 3.68 10^3/uL (1.2-6.7); Basophils % 0.6 %; HCT 41.8 % (36.0-46.0); Lymphocytes % 17.6 %; MCH 29.5 pg (27.0-33.0); MCHC 33.5 % (32.0-36.0); MCV 88 fL (80-95); MPV 10.6 fL (8.0-11.0); Monocytes % 9.7 %; Neutrophils % 71.1 %; Platelet Count 214 10^3/uL (130-400); RBC 4.74 10^6/uL (3.93-5.22); RDW 13.2 % (11.7-14.6); RDW-SD 42.9 fL; WBC 5.17 10^3/uL (4.4-10.8)
[2024-10-30 12:11] LABS: CREATININE 0.9 mg/dL (0.55-1.02); Estimated GFR 76.44 (mL/min/1.73m2)
== END 2024-10-30 00:57 | disposition home or self-care (01) ==
LOC: LBO 00:56
PROVIDERS: PCP Family Medicine; Visit Provider Student in an Organized Health Care Education/Training Program
DX: A43.9 Nocardiosis, unspecified (principal)
CPT/HCPCS: 36415; 82565; 85025

== ENCOUNTER 2024-11-26 16:42 | Outpatient (CLI) | payer OTHER, SELFPAY ==
[2024-11-26 16:50] LABS: Absolute Basophil Count 0.03 10^3/uL (0.0-0.2); Absolute Eosinophil Count 0.05 10^3/uL (0.0-0.7); Absolute Lymphocyte Count 0.96 10^3/uL (1.2-3.4); Absolute Monocyte Count 0.72 10^3/uL (0.1-0.8); Absolute Neutrophil Count 2.66 10^3/uL (1.2-6.7); Basophils % 0.7 %; Eosinophils % 1.1 %; HCT 37.9 % (36.0-46.0); HGB 12.8 g/dL (11.2-15.7); Lymphocytes % 21.7 %; MCH 29.7 pg (27.0-33.0); MCHC 33.8 % (32.0-36.0); MCV 88 fL (80-95); MPV 11.8 fL (8.0-11.0); Monocytes % 16.3 %; Neutrophils % 60.2 %; Platelet Count 166 10^3/uL (130-400); RBC 4.31 10^6/uL (3.93-5.22); RDW 13.4 % (11.7-14.6); RDW-SD 43.8 fL; WBC 4.42 10^3/uL (4.4-10.8)
[2024-11-26 17:12] LABS: CREATININE 0.8 mg/dL (0.55-1.02); Estimated GFR 88.05 (mL/min/1.73m2)
[2024-11-26 17:17] LABS: Diff Comment Agrees w/ Instrument; RBC Morphology Normal
== END 2024-11-26 16:43 | disposition home or self-care (01) ==
LOC: LBO 16:43
PROVIDERS: PCP Family Medicine; Visit Provider Student in an Organized Health Care Education/Training Program
DX: A43.9 Nocardiosis, unspecified (principal)
CPT/HCPCS: 36415; 82565; 85025

== ENCOUNTER 2024-12-25 11:28 | Outpatient (CLI) | payer OTHER, SELFPAY ==
[2024-12-25 11:43] LABS: Abs Immature Grans 0.03 10^3/uL (0.0-0.06); Absolute Basophil Count 0.04 10^3/uL (0.0-0.2); Absolute Eosinophil Count 0.07 10^3/uL (0.0-0.7); Absolute Lymphocyte Count 1.04 10^3/uL (1.2-3.4); Absolute Monocyte Count 0.62 10^3/uL (0.1-0.8); Absolute Neutrophil Count 5.53 10^3/uL (1.2-6.7); Basophils % 0.5 %; HCT 42.2 % (36.0-46.0); HGB 14.1 g/dL (11.2-15.7); Immature Grans % 0.4 %; Lymphocytes % 14.2 %; MCH 30.1 pg (27.0-33.0); MCHC 33.4 % (32.0-36.0); MCV 90 fL (80-95); MPV 11.3 fL (8.0-11.0); Monocytes % 8.5 %; Neutrophils % 75.4 %; Platelet Count 211 10^3/uL (130-400); RBC 4.69 10^6/uL (3.93-5.22); RDW-SD 45.7 fL; WBC 7.33 10^3/uL (4.4-10.8)
[2024-12-25 11:53] LABS: CREATININE 0.9 mg/dL (0.55-1.02); Estimated GFR 76.44 (mL/min/1.73m2)
== END 2024-12-25 11:29 | disposition home or self-care (01) ==
LOC: LBO 11:28
PROVIDERS: PCP Family Medicine; Visit Provider Student in an Organized Health Care Education/Training Program
DX: A43.9 Nocardiosis, unspecified (principal)
CPT/HCPCS: 36415; 82565; 85025

== ENCOUNTER 2025-01-22 12:12 | Outpatient (CLI) | payer OTHER, SELFPAY ==
[2025-01-22 10:34] LABS: Abs Immature Grans 0.02 10^3/uL (0.0-0.06); Absolute Basophil Count 0.03 10^3/uL (0.0-0.2); Absolute Eosinophil Count 0.04 10^3/uL (0.0-0.7); Absolute Lymphocyte Count 0.87 10^3/uL (1.2-3.4); Absolute Monocyte Count 0.56 10^3/uL (0.1-0.8); Absolute Neutrophil Count 4.31 10^3/uL (1.2-6.7); Basophils % 0.5 %; Eosinophils % 0.7 %; HCT 42.3 % (36.0-46.0); Immature Grans % 0.3 %; Lymphocytes % 14.9 %; MCH 30.1 pg (27.0-33.0); MCHC 33.1 % (32.0-36.0); MCV 91 fL (80-95); MPV 10.6 fL (8.0-11.0); Monocytes % 9.6 %; Platelet Count 208 10^3/uL (130-400); RBC 4.65 10^6/uL (3.93-5.22); RDW 13.1 % (11.7-14.6); RDW-SD 44.3 fL; WBC 5.83 10^3/uL (4.4-10.8)
[2025-01-22 10:52] LABS: CREATININE 1.1 mg/dL (0.55-1.02); Estimated GFR 60.08 (mL/min/1.73m2)
== END 2025-01-22 12:13 | disposition home or self-care (01) ==
LOC: LBO 12:12
PROVIDERS: PCP Family Medicine; Visit Provider Student in an Organized Health Care Education/Training Program
DX: A43.9 Nocardiosis, unspecified (principal)
CPT/HCPCS: 36415; 82565; 85025

== ENCOUNTER 2025-02-09 16:04 | Outpatient (CLI) | payer OTHER, SELFPAY ==
[2025-02-09 16:16] LABS: Abs Immature Grans 0.01 10^3/uL (0.0-0.06); HCT 39.7 % (36.0-46.0); HGB 13.0 g/dL (11.2-15.7); Immature Grans % 0.2 %; MCH 29.9 pg (27.0-33.0); MCHC 32.7 % (32.0-36.0); MCV 91 fL (80-95); MPV 11.3 fL (8.0-11.0); Platelet Count 185 10^3/uL (130-400); RBC 4.35 10^6/uL (3.93-5.22); RDW 12.8 % (11.7-14.6); RDW-SD 43.1 fL; WBC 4.89 10^3/uL (4.4-10.8)
[2025-02-09 16:27] LABS: INR 1.1 (0.9-1.1); PTT Activated 26.5 sec (20.6-30.2); Prothrombin Time 10.8 sec (9.1-11.1)
[2025-02-09 17:25] LABS: ALT 38 U/L (14-59); AST 30 U/L (15-37); Albumin 4.1 g/dL (3.4-5.0); Alkaline Phosphatase 138 U/L (46-116); Anion Gap 7.2 mmol/L (3-11); BUN 16 mg/dL (7-18); Bilirubin, Total 0.2 mg/dL (0.2-1.0); CO2 28.8 mmol/L (21.0-32.0); Calcium 9.4 mg/dL (8.5-10.1); Chloride 101 mmol/L (98-107); Estimated GFR 87.50 (mL/min/1.73m2); Glucose 94 mg/dL (74-106); Potassium 4.6 mmol/L (3.5-5.1); Sodium 137 mmol/L (136-145); Total Protein 7.2 g/dL (6.4-8.2)
== END 2025-02-09 16:05 | disposition home or self-care (01) ==
LOC: LBO 16:04
PROVIDERS: PCP Family Medicine; Visit Provider Internal Medicine Infectious Disease
DX: R21 Rash and other nonspecific skin eruption (principal)
CPT/HCPCS: 36415; 80053; 85025; 85610; 85730

== ENCOUNTER 2025-02-11 16:46 | Outpatient (CLI) | payer OTHER, SELFPAY ==
[2025-02-15 10:14] LABS: CD3 71 % (56-84); CD4 56 % (31-64); CD8 13 % (9-39)
== END 2025-02-11 16:47 | disposition home or self-care (01) ==
LOC: LBO 16:46
PROVIDERS: PCP Family Medicine
DX: A43.9 Nocardiosis, unspecified (principal); Z11.9 Encounter for screening for infectious and parasitic diseases, unspecified
CPT/HCPCS: 36415; 86359; 86360

== ENCOUNTER 2025-02-23 03:34 | Outpatient (CLI) | payer OTHER, SELFPAY ==
[2025-02-23] MEDS: Inhaler, Assist Device 1 EACH MC (16:43)
[2025-02-23] MEDS: Levalbuterol HFA 15 GM INH 4 PUFF IH (16:43)
--- NOTE | 2025-02-24 08:05 | W.PFT ---
Date of service: 02/23/25 Time of Service: 14:57 Pulmonary Function Test Result Indications: Hx bronchiectasis Impression 1. Good patient effort was noted. ATS standards for reproducibility were met. 2. Spirometry showed moderate obstructive lung disease with an FEV1 of 59% (1.76 L) 3. Following the administration of a bronchodilator there was not a significant response 4. TLC is normal. No evidence of restrictive lung disease 5. DLCO was normal
== END 2025-02-23 03:35 | disposition home or self-care (01) ==
LOC: RT 03:35
PROVIDERS: PCP Family Medicine; Visit Provider Internal Medicine Pulmonary Disease
DX: J44.9 Chronic obstructive pulmonary disease, unspecified (principal); J47.1 Bronchiectasis with (acute) exacerbation
CPT/HCPCS: 94060; 94726; 94729; 94640

== ENCOUNTER 2025-08-03 00:35 | Outpatient (CLI) | payer OTHER, SELFPAY ==
[2025-08-03] MEDS: Inhaler, Assist Device 1 EACH MC (15:26)
[2025-08-03] MEDS: Levalbuterol HFA 15 GM INH 4 PUFF IH (15:27)
--- NOTE | 2025-08-18 11:14 | W.PFT ---
Date of service: 08/03/25 Time of Service: 04:36 Pulmonary Function Test Result Indications: MAC Impression 1. Good patient effort was noted. ATS standards for reproducibility were met. 2. Spirometry showed moderate obstructive lung disease with an FEV1 of 59% (1.63 L) 3. Following the administration of a bronchodilator there was not a significant response
== END 2025-08-03 00:36 | disposition home or self-care (01) ==
LOC: RT 00:35
PROVIDERS: PCP Family Medicine; Visit Provider Internal Medicine Pulmonary Disease
DX: A31.0 Pulmonary mycobacterial infection (principal); J44.9 Chronic obstructive pulmonary disease, unspecified
CPT/HCPCS: 94060